=== PATIENT | male | born 1955 | race Caucasian/White ===

== ENCOUNTER 2021-06-21 06:32 | Day surgery (SDC) | payer BC, MEDICARE ==
[~2021-06-21 06:32] MED LIST: Dextrose 5%-0.45% NaCl 1,000 ML IV SCH; Midazolam 1 MG/ML 2 ML SDV ONE; Sodium Chloride 0.9% 10 ML Syringe FLUSH PRN; fentaNYL 100 MCG/2 ML SDV ONE
[2021-06-21] MEDS ORDERED: Midazolam 1 MG/ML 2 ML SDV IV ONE ×6 (06:33→08:32)
[2021-06-21] MEDS ORDERED: fentaNYL 100 MCG/2 ML SDV IV ONE ×3 (06:33→08:20)
[2021-06-21] MEDS ORDERED: Sodium Chloride 0.9% 10 ML Syringe FLUSH SCH (09:00)
== END 2021-06-21 11:10 | disposition home or self-care (01) ==
LOC: DL.ENDO 06:32
PROVIDERS: ATTEND Internal Medicine Gastroenterology
DX: K57.30 Diverticulosis of large intestine without perforation or abscess without bleeding (principal); K59.09 Other constipation; H91.90 Unspecified hearing loss, unspecified ear; N40.0 Benign prostatic hyperplasia without lower urinary tract symptoms; E78.00 Pure hypercholesterolemia, unspecified; Z95.5 Presence of coronary angioplasty implant and graft
CPT/HCPCS: J2250; J3010; J7042

== ENCOUNTER 2022-12-15 22:38 | Inpatient (IN) | payer MEDICARE ==
[2022-12-15] MEDS ORDERED: Sodium Chloride 0.9% 1,000 ML IV ONE (23:07)
[2022-12-15] MEDS ORDERED: cefTRIAXone 2 GM Vial IV ONE (23:07)
[2022-12-15] MEDS: Sodium Chloride 0.9% 10 ML Syringe FLUSH PRN (23:27)
[2022-12-15 23:41] LABS: BASOPHILS PERCENT AUTO 0.1 % (0.0-1.0); EOSINOPHILS PERCENT AUTO 0.1 % (1.0-3.0); HEMATOCRIT 36.9 % (40.0-54.0); HEMOGLOBIN 11.6 g/dL (14.0-18.0); LYMPHOCYTES PERCENT AUTO 8.5 % (20.5-50.1); MEAN CORPUSCULAR HEMOGLOBIN 30.2 pg (27.0-34.0); MEAN CORPUSCULAR HGB CONC 31.4 g/dL (33.0-35.0); MEAN CORPUSCULAR VOLUME 96.1 fL (80-100); MONOCYTES PERCENT AUTO 15.7 % (2-8); NEUTROPHILS PERCENT AUTO 75.6 % (42.2-75.2); PLATELET COUNT,PLT 193 10^3/uL (150-450); RED BLOOD CELL COUNT 3.84 10^6/uL (4.6-6.2); WHITE BLOOD CELL COUNT,WBC 7.6 10^3/uL (5.0-10.0)
[2022-12-15 23:59] LABS: LACTIC ACID 1.2 mmol/L (0.4-2.0)
[2022-12-16 00:04] LABS: ALANINE AMINOTRANSFERASE,ALT 20 U/L (16-63); ALBUMIN 2.7 g/dL (3.4-5.0); ALKALINE PHOSPHATASE 67 U/L (46-116); ANION GAP 8.6 mEq/L (7-13); ASPARTATE AMNIOTRANSFERASE,AST 278 U/L (15-37); BILIRUBIN TOTAL 0.8 mg/dL (0.2-1.0); BLOOD UREA NITROGEN,BUN 22 mg/dL (7-18); CALCIUM 8.2 mg/dL (8.5-10.1); CARBON DIOXIDE,CO2 32 mmol/L (21-32); CHLORIDE,CL 100 mmol/L (98-107); CREATININE 1.05 mg/dL (0.70-1.30); GLUCOSE RANDOM 112 mg/dL (70-99); MAGNESIUM 2.1 mg/dL (1.8-2.4); POTASSIUM,K 3.6 mmol/L (3.5-5.1); PROTEIN TOTAL,TP 6.6 g/dL (6.4-8.2); SODIUM,NA 137 mmol/L (136-145)
[2022-12-16 00:05] LABS: A/G RATIO 0.69; ESTIMATED GFR 78 mL/min (>=60)
[2022-12-16 00:30] LABS: APPEARANCE,URINE CLOUDY (CLEAR); BILIRUBIN,URINE LARGE (NEGATIVE); GLUCOSE,URINE 100 (NEGATIVE); KETONES,URINE 15 (NEGATIVE); LEUKOCYTE ESTERASE,URINE LARGE (NEGATIVE); NITRITE,URINE POSITIVE (NEGATIVE); OCCULT BLOOD,URINE LARGE (NEGATIVE); PH,URINE 5.5 (5.0-9.0); PROTEIN,URINE >=300 (NEGATIVE)
[2022-12-16 00:39] LABS: COLOR,URINE RED (YELLOW)
[2022-12-16 00:40] LABS: BACTERIA,URINE MODERATE /HPF (0-FEW/HPF); EPITHELIAL CELLS,URINE FEW /HPF (NOT SEEN); MUCUS,URINE NOT SEEN /LPF (NOT SEEN); RBC,URINE >100 /HPF (0-5)
[2022-12-16 01:03] LABS: INFLUENZA A NAA NEGATIVE (NEGATIVE); INFLUENZA B NAA NEGATIVE (NEGATIVE); RESPIRATORY SYNCYTIAL VIR NAA NEGATIVE (NEGATIVE)
[2022-12-16 01:05] LABS: CORONAVIRUS COVID-19 NAA POSITIVE (NEGATIVE)
[2022-12-16] MEDS ORDERED: Dexamethasone 4 MG/ML SDV IVPUSH ONE (01:06)
[2022-12-16] MEDS ORDERED: REMDESIVIR 200 MG in Sodium Chloride 0.9% 250 ML IV ONE (01:07)
[2022-12-16] MEDS ORDERED: Acetaminophen 325 MG Tab PO PRN (02:11)
[2022-12-16] MEDS ORDERED: Albuterol/Ipratropium 3.0-0.5 MG/3 ML Neb Soln NEB PRN (02:13)
[2022-12-16] MEDS ORDERED: Docusate Sodium 100 MG Cap PO PRN (02:13)
[2022-12-16] MEDS ORDERED: Acetaminophen/HYDROcodone 325-10 MG Tab PO PRN (02:13)
[2022-12-16] MEDS ORDERED: Ondansetron 4 MG Tab.DIS PO PRN (02:13)
[2022-12-16] MEDS ORDERED: Sodium Chloride 0.9% 1,000 ML IV SCH (02:15)
[2022-12-16] MEDS: Piperacillin/Tazobactam 4.5 GM in Sodium Chloride 0.9% 100 ML IV SCH ×3 (05:37→17:36)
[2022-12-16 06:39] LABS: ALBUMIN 2.4 g/dL (3.4-5.0); BILIRUBIN DIRECT 0.2 mg/dL (0.0-0.2); BILIRUBIN TOTAL 0.5 mg/dL (0.2-1.0); BUN/CREATININE RATIO 18.6 (No establ ref range); CALCIUM 7.8 mg/dL (8.5-10.1); CREATININE 0.97 mg/dL (0.70-1.30); EST CRCL DRUG DOSING (CG) 73.9 mL/min; POTASSIUM,K 3.6 mmol/L (3.5-5.1); PROTEIN TOTAL,TP 6.3 g/dL (6.4-8.2)
[2022-12-16 07:03] LABS: A/G RATIO 0.62; ANION GAP 12.6 mEq/L (7-13)
[2022-12-16] MEDS ORDERED: Fludrocortisone 0.1 MG Tab PO SCH (09:00)
[2022-12-16] MEDS ORDERED: Clopidogrel 75 MG Tab PO SCH (09:00)
[2022-12-16] MEDS: Enoxaparin 40 MG/0.4 ML Syringe SUBCUT SCH (10:03)
[2022-12-16] MEDS: Dexamethasone 4 MG/ML SDV IVPUSH SCH (10:03)
[2022-12-16] MEDS: Albuterol/Ipratropium 3.0-0.5 MG/3 ML Neb Soln NEB SCH ×4 (10:18→21:03)
[2022-12-16] MEDS ORDERED: guaiFENesin/Dextromethorphan 100-10 MG/5 ML Soln 5 ML Cup PO PRN (12:42)
[2022-12-16] MEDS: Carbidopa/Levodopa 25-100 MG Tab PO SCH ×2 (14:17→20:47)
[2022-12-16] MEDS: Aspirin 81 MG Tab.EC PO SCH (14:18)
[2022-12-16] MEDS: Midodrine 2.5 MG Tab PO SCH (15:02)
[2022-12-16] MEDS: guaiFENesin 600 MG Tab.ER PO SCH (20:47)
[2022-12-16] MEDS: Famotidine 20 MG Tab PO SCH (20:47)
[2022-12-16] MEDS ORDERED: Azithromycin 500 MG in Sodium Chloride 0.9% 250 ML IV ONE (21:09)
[2022-12-16] MEDS ORDERED: Saccharomyces Boulardii (Probiotic) 250 MG Cap PO STA (21:11)
[2022-12-17] MEDS: Albuterol/Ipratropium 3.0-0.5 MG/3 ML Neb Soln NEB SCH ×6 (01:41→22:13)
[2022-12-17] MEDS: Piperacillin/Tazobactam 4.5 GM in Sodium Chloride 0.9% 100 ML IV SCH ×5 (05:19→17:25)
[2022-12-17 06:28] LABS: BASOPHILS PERCENT AUTO 0.1 % (0.0-1.0); HEMATOCRIT 32.7 % (40.0-54.0); HEMOGLOBIN 11.1 g/dL (14.0-18.0); LYMPHOCYTES PERCENT AUTO 9.3 % (20.5-50.1); MEAN CORPUSCULAR HEMOGLOBIN 32.9 pg (27.0-34.0); MEAN CORPUSCULAR HGB CONC 33.9 g/dL (33.0-35.0); MONOCYTES PERCENT AUTO 12.9 % (2-8); NEUTROPHILS PERCENT AUTO 77.7 % (42.2-75.2); PLATELET COUNT,PLT 187 10^3/uL (150-450); RED BLOOD CELL COUNT 3.37 10^6/uL (4.6-6.2); WHITE BLOOD CELL COUNT,WBC 8.7 10^3/uL (5.0-10.0)
[2022-12-17 06:52] LABS: ALBUMIN 2.2 g/dL (3.4-5.0); ANION GAP 7.8 mEq/L (7-13); BILIRUBIN DIRECT 0.2 mg/dL (0.0-0.2); BILIRUBIN TOTAL 0.6 mg/dL (0.2-1.0); BUN/CREATININE RATIO 19.3 (No establ ref range); C-REACTIVE PROTEIN 10.88 ng/dL (<=0.30); CALCIUM 7.8 mg/dL (8.5-10.1); CREATININE 0.83 mg/dL (0.70-1.30); EST CRCL DRUG DOSING (CG) 86.36 mL/min; POTASSIUM,K 3.8 mmol/L (3.5-5.1); PROTEIN TOTAL,TP 6.1 g/dL (6.4-8.2)
[2022-12-17 07:02] LABS: A/G RATIO 0.56
[2022-12-17] MEDS: Carbidopa/Levodopa 25-100 MG Tab PO SCH ×3 (08:45→20:01)
[2022-12-17] MEDS: Saccharomyces Boulardii (Probiotic) 250 MG Cap PO SCH ×2 (08:45→20:00)
[2022-12-17] MEDS: Enoxaparin 40 MG/0.4 ML Syringe SUBCUT SCH (08:45)
[2022-12-17] MEDS: Aspirin 81 MG Tab.EC PO SCH (08:46)
[2022-12-17] MEDS: guaiFENesin 600 MG Tab.ER PO SCH ×2 (08:46→20:00)
[2022-12-17] MEDS: Dexamethasone 4 MG/ML SDV IVPUSH SCH (08:46)
[2022-12-17] MEDS: Docusate Sodium 100 MG Cap PO SCH (08:46)
[2022-12-17] MEDS: Famotidine 20 MG Tab PO SCH ×2 (08:46→20:01)
[2022-12-17] MEDS: Azithromycin 500 MG in Sodium Chloride 0.9% 250 ML IV SCH (08:53)
[2022-12-17] MEDS: REMDESIVIR 100 MG in Sodium Chloride 0.9% 100 ML IV SCH (10:24)
[2022-12-17] MEDS: Sodium Chloride 0.9% 1,000 ML IV SCH (20:03)
[2022-12-18] MEDS: Piperacillin/Tazobactam 4.5 GM in Sodium Chloride 0.9% 100 ML IV SCH ×5 (00:08→23:49)
[2022-12-18] MEDS: Albuterol/Ipratropium 3.0-0.5 MG/3 ML Neb Soln NEB SCH ×6 (01:31→22:27)
[2022-12-18 06:12] LABS: BASOPHILS PERCENT AUTO 0.1 % (0.0-1.0); EOSINOPHILS PERCENT AUTO 0.2 % (1.0-3.0); HEMATOCRIT 31.2 % (40.0-54.0); HEMOGLOBIN 9.8 g/dL (14.0-18.0); LYMPHOCYTES PERCENT AUTO 13.4 % (20.5-50.1); MEAN CORPUSCULAR HEMOGLOBIN 30.2 pg (27.0-34.0); MEAN CORPUSCULAR HGB CONC 31.4 g/dL (33.0-35.0); MONOCYTES PERCENT AUTO 10.9 % (2-8); NEUTROPHILS PERCENT AUTO 75.4 % (42.2-75.2); PLATELET COUNT,PLT 217 10^3/uL (150-450); RED BLOOD CELL COUNT 3.25 10^6/uL (4.6-6.2); WHITE BLOOD CELL COUNT,WBC 8.7 10^3/uL (5.0-10.0)
[2022-12-18 06:32] LABS: ALBUMIN 2.2 g/dL (3.4-5.0); ANION GAP 6.2 mEq/L (7-13); BILIRUBIN DIRECT 0.2 mg/dL (0.0-0.2); BILIRUBIN TOTAL 0.4 mg/dL (0.2-1.0); BUN/CREATININE RATIO 17.7 (No establ ref range); C-REACTIVE PROTEIN 5.56 ng/dL (<=0.30); CALCIUM 7.7 mg/dL (8.5-10.1); CREATININE 0.79 mg/dL (0.70-1.30); EST CRCL DRUG DOSING (CG) 90.74 mL/min; MAGNESIUM 1.9 mg/dL (1.8-2.4); POTASSIUM,K 3.2 mmol/L (3.5-5.1); PROTEIN TOTAL,TP 5.9 g/dL (6.4-8.2)
[2022-12-18 06:41] LABS: A/G RATIO 0.59
[2022-12-18] MEDS: Sodium Chloride 0.9% 1,000 ML IV SCH (08:35)
[2022-12-18] MEDS: Dexamethasone 4 MG/ML SDV IVPUSH SCH (08:36)
[2022-12-18] MEDS: REMDESIVIR 100 MG in Sodium Chloride 0.9% 100 ML IV SCH (08:40)
[2022-12-18] MEDS: Docusate Sodium 100 MG Cap PO SCH (08:42)
[2022-12-18] MEDS: Carbidopa/Levodopa 25-100 MG Tab PO SCH ×3 (08:42→20:36)
[2022-12-18] MEDS: guaiFENesin 600 MG Tab.ER PO SCH ×2 (08:42→20:36)
[2022-12-18] MEDS: Saccharomyces Boulardii (Probiotic) 250 MG Cap PO SCH ×2 (08:42→20:36)
[2022-12-18] MEDS: Famotidine 20 MG Tab PO SCH ×2 (08:42→20:36)
[2022-12-18] MEDS: Aspirin 81 MG Tab.EC PO SCH (08:42)
[2022-12-18] MEDS: Enoxaparin 40 MG/0.4 ML Syringe SUBCUT SCH (08:43)
[2022-12-18] MEDS: Azithromycin 500 MG in Sodium Chloride 0.9% 250 ML IV SCH (09:43)
[2022-12-18] MEDS ORDERED: Furosemide 20 MG/2 ML VIAL IVPUSH ONE (10:42)
[2022-12-18] MEDS ORDERED: Potassium Chloride 10 MEQ Tab.ER PO ONE (12:00)
[2022-12-18] MEDS: Sodium Chloride 0.9% 10 ML Syringe FLUSH PRN (23:48)
[2022-12-19] MEDS: Albuterol/Ipratropium 3.0-0.5 MG/3 ML Neb Soln NEB SCH ×2 (02:07→06:44)
[2022-12-19] MEDS: Piperacillin/Tazobactam 4.5 GM in Sodium Chloride 0.9% 100 ML IV SCH ×3 (06:03→18:04)
[2022-12-19 06:23] LABS: BASOPHILS PERCENT AUTO 0.1 % (0.0-1.0); EOSINOPHILS PERCENT AUTO 0.5 % (1.0-3.0); HEMATOCRIT 32.7 % (40.0-54.0); HEMOGLOBIN 10.4 g/dL (14.0-18.0); LYMPHOCYTES PERCENT AUTO 16.9 % (20.5-50.1); MEAN CORPUSCULAR HGB CONC 31.8 g/dL (33.0-35.0); MEAN CORPUSCULAR VOLUME 94.2 fL (80-100); MONOCYTES PERCENT AUTO 10.5 % (2-8); PLATELET COUNT,PLT 268 10^3/uL (150-450); RED BLOOD CELL COUNT 3.47 10^6/uL (4.6-6.2); WHITE BLOOD CELL COUNT,WBC 9.2 10^3/uL (5.0-10.0)
[2022-12-19 06:36] LABS: ALBUMIN 2.3 g/dL (3.4-5.0); ANION GAP 9.4 mEq/L (7-13); BILIRUBIN DIRECT 0.1 mg/dL (0.0-0.2); BILIRUBIN TOTAL 0.5 mg/dL (0.2-1.0); BUN/CREATININE RATIO 15.8 (No establ ref range); C-REACTIVE PROTEIN 2.98 ng/dL (<=0.50); CREATININE 0.76 mg/dL (0.70-1.30); EST CRCL DRUG DOSING (CG) 94.32 mL/min; MAGNESIUM 1.9 mg/dL (1.8-2.4); POTASSIUM,K 3.4 mmol/L (3.5-5.1); PROTEIN TOTAL,TP 6.2 g/dL (6.4-8.2)
[2022-12-19 06:55] LABS: A/G RATIO 0.59
[2022-12-19] MEDS: Azithromycin 500 MG in Sodium Chloride 0.9% 250 ML IV SCH (09:25)
[2022-12-19] MEDS: Famotidine 20 MG Tab PO SCH ×2 (09:33→21:43)
[2022-12-19] MEDS: Carbidopa/Levodopa 25-100 MG Tab PO SCH ×3 (09:33→21:43)
[2022-12-19] MEDS: Saccharomyces Boulardii (Probiotic) 250 MG Cap PO SCH ×2 (09:33→21:43)
[2022-12-19] MEDS: Aspirin 81 MG Tab.EC PO SCH (09:33)
[2022-12-19] MEDS: Docusate Sodium 100 MG Cap PO SCH (09:33)
[2022-12-19] MEDS: guaiFENesin 600 MG Tab.ER PO SCH ×2 (09:33→21:43)
[2022-12-19] MEDS: Enoxaparin 40 MG/0.4 ML Syringe SUBCUT SCH (09:34)
[2022-12-19] MEDS: Dexamethasone 4 MG/ML SDV IVPUSH SCH (09:57)
[2022-12-19] MEDS: REMDESIVIR 100 MG in Sodium Chloride 0.9% 100 ML IV SCH (11:50)
[2022-12-19] MEDS: Sodium Chloride 0.9% 10 ML Syringe FLUSH PRN (21:43)
[2022-12-20] MEDS: Piperacillin/Tazobactam 4.5 GM in Sodium Chloride 0.9% 100 ML IV SCH ×5 (01:03→23:51)
[2022-12-20 06:51] LABS: EOSINOPHILS PERCENT AUTO 0.6 % (1.0-3.0); HEMATOCRIT 34.5 % (40.0-54.0); MEAN CORPUSCULAR HEMOGLOBIN 30.1 pg (27.0-34.0); MEAN CORPUSCULAR HGB CONC 31.9 g/dL (33.0-35.0); MEAN CORPUSCULAR VOLUME 94.5 fL (80-100); MONOCYTES PERCENT AUTO 12.6 % (2-8); NEUTROPHILS PERCENT AUTO 72.8 % (42.2-75.2); PLATELET COUNT,PLT 299 10^3/uL (150-450); RED BLOOD CELL COUNT 3.65 10^6/uL (4.6-6.2); WHITE BLOOD CELL COUNT,WBC 9.9 10^3/uL (5.0-10.0)
[2022-12-20 07:05] LABS: ALBUMIN 2.4 g/dL (3.4-5.0); ANION GAP 7.6 mEq/L (7-13); BILIRUBIN DIRECT 0.2 mg/dL (0.0-0.2); BILIRUBIN TOTAL 0.5 mg/dL (0.2-1.0); BUN/CREATININE RATIO 19.2 (No establ ref range); C-REACTIVE PROTEIN 1.92 ng/dL (<=0.50); CALCIUM 8.2 mg/dL (8.5-10.1); CREATININE 0.73 mg/dL (0.70-1.30); EST CRCL DRUG DOSING (CG) 98.19 mL/min; MAGNESIUM 1.9 mg/dL (1.8-2.4); POTASSIUM,K 3.6 mmol/L (3.5-5.1); PROTEIN TOTAL,TP 6.3 g/dL (6.4-8.2)
[2022-12-20 07:09] LABS: A/G RATIO 0.62
[2022-12-20] MEDS: Enoxaparin 40 MG/0.4 ML Syringe SUBCUT SCH (10:18)
[2022-12-20] MEDS: Saccharomyces Boulardii (Probiotic) 250 MG Cap PO SCH ×2 (10:18→21:51)
[2022-12-20] MEDS: Famotidine 20 MG Tab PO SCH ×2 (10:18→21:51)
[2022-12-20] MEDS: guaiFENesin 600 MG Tab.ER PO SCH ×2 (10:18→21:51)
[2022-12-20] MEDS: Carbidopa/Levodopa 25-100 MG Tab PO SCH ×3 (10:18→21:52)
[2022-12-20] MEDS: Docusate Sodium 100 MG Cap PO SCH (10:18)
[2022-12-20] MEDS: Dexamethasone 4 MG/ML SDV IVPUSH SCH (10:19)
[2022-12-20] MEDS: REMDESIVIR 100 MG in Sodium Chloride 0.9% 100 ML IV SCH (10:20)
[2022-12-20] MEDS: Azithromycin 500 MG in Sodium Chloride 0.9% 250 ML IV SCH (10:21)
[2022-12-20] MEDS: Aspirin 81 MG Tab.EC PO SCH (10:28)
[2022-12-20] MEDS ORDERED: Cholecalciferol (Vitamin D3) 25 MCG Tab PO ONE (17:00)
[2022-12-20] MEDS: Sodium Chloride 0.9% 10 ML Syringe FLUSH PRN (23:46)
[2022-12-21] MEDS: Piperacillin/Tazobactam 4.5 GM in Sodium Chloride 0.9% 100 ML IV SCH ×4 (05:45→23:34)
[2022-12-21 06:33] LABS: BASOPHILS PERCENT AUTO 0.1 % (0.0-1.0); EOSINOPHILS PERCENT AUTO 1.4 % (1.0-3.0); HEMATOCRIT 34.1 % (40.0-54.0); HEMOGLOBIN 11.3 g/dL (14.0-18.0); LYMPHOCYTES PERCENT AUTO 16.3 % (20.5-50.1); MEAN CORPUSCULAR HEMOGLOBIN 31.2 pg (27.0-34.0); MEAN CORPUSCULAR HGB CONC 33.1 g/dL (33.0-35.0); MEAN CORPUSCULAR VOLUME 94.2 fL (80-100); NEUTROPHILS PERCENT AUTO 70.2 % (42.2-75.2); PLATELET COUNT,PLT 329 10^3/uL (150-450); RED BLOOD CELL COUNT 3.62 10^6/uL (4.6-6.2); WHITE BLOOD CELL COUNT,WBC 9.5 10^3/uL (5.0-10.0)
[2022-12-21 08:06] LABS: ALBUMIN 2.4 g/dL (3.4-5.0); ANION GAP 11.6 mEq/L (7-13); BILIRUBIN TOTAL 0.5 mg/dL (0.2-1.0); BUN/CREATININE RATIO 18.5 (No establ ref range); CALCIUM 8.2 mg/dL (8.5-10.1); CREATININE 0.92 mg/dL (0.70-1.30); EST CRCL DRUG DOSING (CG) 77.92 mL/min; MAGNESIUM 1.9 mg/dL (1.8-2.4); POTASSIUM,K 3.6 mmol/L (3.5-5.1)
[2022-12-21 08:07] LABS: A/G RATIO 0.67
[2022-12-21] MEDS: Enoxaparin 40 MG/0.4 ML Syringe SUBCUT SCH (10:14)
[2022-12-21] MEDS: Cholecalciferol (Vitamin D3) 25 MCG Tab PO SCH (10:15)
[2022-12-21] MEDS: Saccharomyces Boulardii (Probiotic) 250 MG Cap PO SCH ×2 (10:15→20:07)
[2022-12-21] MEDS: Carbidopa/Levodopa 25-100 MG Tab PO SCH ×3 (10:15→20:07)
[2022-12-21] MEDS: Docusate Sodium 100 MG Cap PO SCH ×2 (10:15)
[2022-12-21] MEDS: Aspirin 81 MG Tab.EC PO SCH (10:16)
[2022-12-21] MEDS: guaiFENesin 600 MG Tab.ER PO SCH ×2 (10:16→20:07)
[2022-12-21] MEDS: Famotidine 20 MG Tab PO SCH ×2 (10:16→20:07)
[2022-12-21] MEDS: Dexamethasone 4 MG/ML SDV IVPUSH SCH (10:17)
[2022-12-21] MEDS ORDERED: Mirtazapine 15 MG Tab PO SCH (21:00)
[2022-12-21] MEDS: Sodium Chloride 0.9% 10 ML Syringe FLUSH PRN (23:33)
[2022-12-22] MEDS: Sodium Chloride 0.9% 10 ML Syringe FLUSH PRN (05:56)
[2022-12-22] MEDS: Piperacillin/Tazobactam 4.5 GM in Sodium Chloride 0.9% 100 ML IV SCH (05:57)
[2022-12-22] MEDS: Docusate Sodium 100 MG Cap PO SCH (08:03)
[2022-12-22] MEDS: Cholecalciferol (Vitamin D3) 25 MCG Tab PO SCH (08:04)
[2022-12-22] MEDS: Carbidopa/Levodopa 25-100 MG Tab PO SCH (08:04)
[2022-12-22] MEDS: guaiFENesin 600 MG Tab.ER PO SCH (08:04)
[2022-12-22] MEDS: Famotidine 20 MG Tab PO SCH (08:04)
[2022-12-22] MEDS: Dexamethasone 4 MG/ML SDV IVPUSH SCH (08:05)
[2022-12-22] MEDS: Enoxaparin 40 MG/0.4 ML Syringe SUBCUT SCH (08:05)
[2022-12-22] MEDS: Aspirin 81 MG Tab.EC PO SCH (08:05)
[2022-12-22] MEDS: Saccharomyces Boulardii (Probiotic) 250 MG Cap PO SCH (08:05)
== END 2022-12-22 09:32 | disposition swing bed (61) | DRG 871 ==
LOC: DL.ED 22:38 → DL.MS 12-16 01:07
PROVIDERS: ADMIT Internal Medicine; ATTEND Internal Medicine
PROC: 8E0ZXY6 Isolation (ICD-10-PCS; principal; 2022-12-15)
PROC: XW033E5 Introduction of Remdesivir Anti-infective into Peripheral Vein, Percutaneous Approach, New Technology Group 5 (ICD-10-PCS; 2022-12-15)
PROC: 3E0DX3Z Introduction of Anti-inflammatory into Mouth and Pharynx, External Approach (ICD-10-PCS; 2022-12-15)
PROC: 3E03329 Introduction of Other Anti-infective into Peripheral Vein, Percutaneous Approach (ICD-10-PCS; 2022-12-15)
DX: A41.89 Other specified sepsis (principal); G93.41 Metabolic encephalopathy; J12.82 Pneumonia due to coronavirus disease 2019; U07.1 COVID-19; J96.01 Acute respiratory failure with hypoxia; T83.511A Infection and inflammatory reaction due to indwelling urethral catheter, initial encounter; N39.0 Urinary tract infection, site not specified; E78.5 Hyperlipidemia, unspecified; I10 Essential (primary) hypertension; I25.10 Atherosclerotic heart disease of native coronary artery without angina pectoris; G47.33 Obstructive sleep apnea (adult) (pediatric); M62.59 Muscle wasting and atrophy, not elsewhere classified, multiple sites; Z66 Do not resuscitate; K59.09 Other constipation; G20.A1 Parkinson's disease without dyskinesia, without mention of fluctuations; R33.9 Retention of urine, unspecified; Z96.0 Presence of urogenital implants; D64.9 Anemia, unspecified; E55.9 Vitamin D deficiency, unspecified; R26.89 Other abnormalities of gait and mobility; E88.09 Other disorders of plasma-protein metabolism, not elsewhere classified; R00.1 Bradycardia, unspecified; L89.150 Pressure ulcer of sacral region, unstageable; L89.329 Pressure ulcer of left buttock, unspecified stage; L89.319 Pressure ulcer of right buttock, unspecified stage; E87.6 Hypokalemia; R73.9 Hyperglycemia, unspecified; R31.0 Gross hematuria; Z98.52 Vasectomy status; Z79.52 Long term (current) use of systemic steroids; Z79.82 Long term (current) use of aspirin; Z79.899 Other long term (current) drug therapy; Y84.6 Urinary catheterization as the cause of abnormal reaction of the patient, or of later complication, without mention of misadventure at the time of the procedure; Y92.89 Other specified places as the place of occurrence of the external cause; Z74.01 Bed confinement status
CPT/HCPCS: 0241U; 36415; 51700; 71045; 80053; 81001; 82248; 82306; 83605; 83735; 84443; 85025; 85730; 86140; 87040; 87086; 94010; 94060; 94640; 94667; 94668; 94760; 97161-GP; 97165-GO; 97530-GO; 97530-GP; 97535-GO; 99285; A9270-GY; J0248; J0456; J0696; J1100; J1650; J1940; J2543; J3370; J3490; J7030; J7040; J7050; J7620-GY

== ENCOUNTER 2022-12-22 07:46 | Inpatient (IN) | payer MEDICARE ==
[2022-12-22] MEDS ORDERED: Acetaminophen 325 MG Tab PO PRN (07:50)
[2022-12-22] MEDS ORDERED: Docusate Sodium 100 MG Cap PO PRN (07:50)
[2022-12-22] MEDS ORDERED: Acetaminophen/HYDROcodone 325-10 MG Tab PO PRN (07:50)
[2022-12-22] MEDS ORDERED: Ondansetron 4 MG Tab.DIS PO PRN (07:50)
[2022-12-22] MEDS ORDERED: guaiFENesin/Dextromethorphan 100-10 MG/5 ML Soln 5 ML Cup PO PRN (07:50)
[2022-12-22] MEDS ORDERED: Sodium Chloride 0.9% 10 ML Syringe FLUSH PRN (07:50)
[2022-12-22] MEDS ORDERED: Aspirin 81 MG Tab.EC PO SCH (09:00)
[2022-12-22] MEDS: Carbidopa/Levodopa 25-100 MG Tab PO SCH ×2 (13:55→21:18)
[2022-12-22] MEDS: Mirtazapine 15 MG Tab PO SCH (21:18)
[2022-12-22] MEDS: Saccharomyces Boulardii (Probiotic) 250 MG Cap PO SCH (21:19)
[2022-12-22] MEDS: guaiFENesin 600 MG Tab.ER PO SCH (21:20)
[2022-12-22] MEDS: Famotidine 20 MG Tab PO SCH (21:20)
[2022-12-23] MEDS: Enoxaparin 40 MG/0.4 ML Syringe SUBCUT SCH (08:14)
[2022-12-23] MEDS: Famotidine 20 MG Tab PO SCH ×2 (08:15→20:19)
[2022-12-23] MEDS: Cholecalciferol (Vitamin D3) 25 MCG Tab PO SCH (08:15)
[2022-12-23] MEDS: guaiFENesin 600 MG Tab.ER PO SCH ×2 (08:15→20:16)
[2022-12-23] MEDS: Aspirin 81 MG Tab.EC PO SCH (08:15)
[2022-12-23] MEDS: Docusate Sodium 100 MG Cap PO SCH (08:15)
[2022-12-23] MEDS: Carbidopa/Levodopa 25-100 MG Tab PO SCH ×3 (08:15→20:17)
[2022-12-23] MEDS: Saccharomyces Boulardii (Probiotic) 250 MG Cap PO SCH ×2 (08:15→20:19)
[2022-12-23] MEDS: Mirtazapine 15 MG Tab PO SCH (20:19)
[2022-12-24] MEDS: Enoxaparin 40 MG/0.4 ML Syringe SUBCUT SCH (09:09)
[2022-12-24] MEDS: Aspirin 81 MG Tab.EC PO SCH (09:09)
[2022-12-24] MEDS: Docusate Sodium 100 MG Cap PO SCH (09:09)
[2022-12-24] MEDS: Carbidopa/Levodopa 25-100 MG Tab PO SCH ×3 (09:09→21:02)
[2022-12-24] MEDS: Cholecalciferol (Vitamin D3) 25 MCG Tab PO SCH (09:09)
[2022-12-24] MEDS: Famotidine 20 MG Tab PO SCH ×2 (09:09→21:03)
[2022-12-24] MEDS: Saccharomyces Boulardii (Probiotic) 250 MG Cap PO SCH ×2 (09:09→21:02)
[2022-12-24] MEDS: guaiFENesin 600 MG Tab.ER PO SCH ×2 (09:09→21:03)
[2022-12-24] MEDS: Albuterol/Ipratropium 3.0-0.5 MG/3 ML Neb Soln NEB PRN ×2 (11:56→21:03)
[2022-12-24] MEDS: Mirtazapine 15 MG Tab PO SCH (21:02)
[2022-12-25] MEDS ORDERED: Naloxone 2 MG/2 ML Syringe IVPUSH STA (00:55)
[2022-12-25 01:11] LABS: HEMATOCRIT 40.3 % (40.0-54.0); HEMOGLOBIN 11.9 g/dL (14.0-18.0); MEAN CORPUSCULAR HEMOGLOBIN 30.3 pg (27.0-34.0); MEAN CORPUSCULAR HGB CONC 29.5 g/dL (33.0-35.0); MEAN CORPUSCULAR VOLUME 102.5 fL (80-100); PLATELET COUNT,PLT 550 10^3/uL (150-450); RED BLOOD CELL COUNT 3.93 10^6/uL (4.6-6.2); WHITE BLOOD CELL COUNT,WBC 20.6 10^3/uL (5.0-10.0)
[2022-12-25] MEDS ORDERED: Morphine 2 MG/ML SYRINGE IVPUSH ONE (01:12)
[2022-12-25] MEDS ORDERED: Morphine 2 MG/ML SYRINGE ONE (01:14)
[2022-12-25 01:15] LABS: LYMPHOCYTES PERCENT AUTO 22.5 % (20.5-50.1); MONOCYTES PERCENT AUTO 11.2 % (2-8); NEUTROPHILS PERCENT AUTO 61.3 % (42.2-75.2)
[2022-12-25 01:27] LABS: BAND PERCENT MAN 2 %; EOSINOPHILS PERCENT MAN 3 % (1-3); LYMPHOCYTES PERCENT MAN 18 % (20-50); MONOCYTES PERCENT MAN 8 % (2-8); NRBC MANUAL 2 /100WBC; SEG NEUTROPHILS PERCENT MAN 69 % (42-75)
[2022-12-25 01:33] LABS: ALBUMIN 2.7 g/dL (3.4-5.0); ANION GAP 2.2 mEq/L (7-13); BILIRUBIN TOTAL 0.3 mg/dL (0.2-1.0); CALCIUM 8.4 mg/dL (8.5-10.1); CREATININE 0.91 mg/dL (0.70-1.30); EST CRCL DRUG DOSING (CG) 89.02 mL/min; POTASSIUM,K 5.2 mmol/L (3.5-5.1); PROTEIN TOTAL,TP 7.2 g/dL (6.4-8.2)
[2022-12-25 01:34] LABS: A/G RATIO 0.6
== END 2022-12-25 01:16 | disposition expired | DRG 947 ==
LOC: DL.MS 07:52
PROVIDERS: ADMIT Internal Medicine; ATTEND Internal Medicine
PROC: 5A09457 Assistance with Respiratory Ventilation, 24-96 Consecutive Hours, Continuous Positive Airway Pressure (ICD-10-PCS; principal; 2022-12-22)
DX: R53.81 Other malaise (principal); J18.9 Pneumonia, unspecified organism; N39.0 Urinary tract infection, site not specified; Z66 Do not resuscitate; I10 Essential (primary) hypertension; U09.9 Post COVID-19 condition, unspecified; E78.5 Hyperlipidemia, unspecified; I25.9 Chronic ischemic heart disease, unspecified; K59.09 Other constipation; G20.A1 Parkinson's disease without dyskinesia, without mention of fluctuations; T83.511D Infection and inflammatory reaction due to indwelling urethral catheter, subsequent encounter; L89.329 Pressure ulcer of left buttock, unspecified stage; L89.319 Pressure ulcer of right buttock, unspecified stage; D64.9 Anemia, unspecified; E88.09 Other disorders of plasma-protein metabolism, not elsewhere classified; G47.33 Obstructive sleep apnea (adult) (pediatric); E55.9 Vitamin D deficiency, unspecified; R26.89 Other abnormalities of gait and mobility; Z79.899 Other long term (current) drug therapy; Z79.82 Long term (current) use of aspirin; Z98.890 Other specified postprocedural states; Z98.52 Vasectomy status; Z74.01 Bed confinement status
CPT/HCPCS: 36415; 71045; 80053; 84484; 85025; 85379; 97161-GP; 97166-GO; 97530-GO; 97530-GP; 99306; 99315; A9270-GY; J1650; J7620-GY